=== PATIENT | female | born 1990 ===

== ENCOUNTER 2016-07-19 16:26 | Emergency (ER) | payer MEDICAID, OTHER ==
[2016-07-19 16:26] VITALS: BMI 36.4
[2016-07-19 16:39] VITALS: RESP 18
[2016-07-19] MEDS ORDERED: Alum-Mag Hydrox-Simethicone Susp (30 mL) PO STA (17:01)
[2016-07-19] MEDS ORDERED: Alum-Mag Hydrox-Simethicone Susp (30 mL) ONE (17:06)
[2016-07-19 17:21] LABS: BASO # 0.1 K/uL (0.0-0.2); BASO % 0.9 % (0.0-2.0); EOS # 0.1 K/uL (0.0-0.7); HEMATOCRIT 38.3 % (34.0-47.0); LYMPH % 34.9 % (20.0-40.0); MEAN CELL VOLUME 82.1 fL (81.0-99.0); MEAN CORPUSCULAR HEMOGLOBIN 26.7 pg (27.0-31.0); MEAN CORPUSCULAR HGB CONC 32.5 g/dL (33.0-37.0); MEAN PLATELET VOLUME 7.9 fL (7.2-11.7); MONO # 0.7 K/uL (0.0-0.8); RED CELL DISTRIBUTION WIDTH 15.8 % (11.5-14.5); WHITE BLOOD COUNT 8.6 K/uL (4.8-10.8)
[2016-07-19 17:29] LABS: CHLORIDE 99 mmol/L (98-107); POTASSIUM 3.9 mmol/L (3.6-5.2); SODIUM 138 mmol/L (132-148)
[2016-07-19 17:30] LABS: RBC URINE 1 /hpf (0-3); TRANSITIONAL EPITHIAL < 1 /hpf (0-3); URINE BACTERIA RARE (<OCC); URINE BILIRUBIN NEGATIVE (NEGATIVE); URINE BLOOD NEGATIVE (NEGATIVE); URINE COLOR Straw (YELLOW); URINE GLUCOSE (UA) NORMAL (Normal); URINE KETONE NEGATIVE (NEGATIVE); URINE LEUKOCYTE ESTERASE NEG Leu/uL (Negative); URINE PROTEIN NEGATIVE (NEGATIVE); URINE UROBILINOGEN NORMAL mg/dL (0.2-1.0); WBC URINE < 1 /hpf (0-5)
[2016-07-19 17:31] LABS: AST/SGOT 20 U/L (14-36); BILIRUBIN,TOTAL 0.4 mg/dL (0.2-1.3); CARBON DIOXIDE 27 mmol/L (22-30); GFR AFRICAN-AMERICAN > 60
[2016-07-19 17:32] LABS: ALB/GLOB RATIO 1.2 (1.0-2.1); ALKALINE PHOSPHATASE 77 U/L (38-126); ALT/SGPT 45 U/L (9-52); BLOOD UREA NITROGEN 12 mg/dL (7-17); CALCIUM 8.9 mg/dl (8.6-10.4); GLUCOSE,RANDOM 96 mg/dL (65-105); TOTAL PROTEIN 8.3 g/dL (6.3-8.3)
--- NOTE | 2016-07-19 18:20 | C.PDOC ---
History Of Present Illness 26 y/o female presents to the ED for evaluation of chronic epigastric discomfort and reflux symptoms. Pt reports persistent symptoms since , previously controlled by pepcid and maalox but none taken recently. Denies fever , chills, vomiting, diarrhea or any other complaints. Time Seen by Provider: 07/19/16 16:55 Chief Complaint (Nursing): Abdominal Pain History Per: Patient History/Exam Limitations: no limitations Onset/Duration Of Symptoms: Days Current Symptoms Are (Timing): Still Present Severity: Mild Location Of Pain/Discomfort: Epigastric Associated Symptoms: denies: Fever, Chills, Nausea, Vomiting, Diarrhea Exacerbating Factors: None Alleviating Factors: None Recent travel outside of the [place]: No Past Medical History Reviewed: Historical Data, Nursing Documentation, Vital Signs Vital Signs: Last Vital Signs Temp 98.3 F 07/19/16 18:46 Pulse 90 07/19/16 18:46 Resp 18 07/19/16 18:46 BP 137/83 07/19/16 18:46 Pulse Ox 99 07/19/16 18:46 - Medical History PMH: Gastritis - [facility] Procedures EXTRACTION OF POC, LOW CERVICAL, OPEN APPROACH (11/06/15) INTRODUCE OF OTH THERAP SUBST INTO FEM REPROD, VIA OPENING (11/06/15) Family History: States: Unknown Family Hx - Social History Hx Alcohol Use: No Hx Substance Use: No - Immunization History Hx Tetanus Toxoid Vaccination: No Hx Influenza Vaccination: No Hx Pneumococcal Vaccination: No Review Of Systems Except As Marked, All Systems Reviewed And Found Negative. Constitutional: Negative for: Fever Gastrointestinal: Positive for: Abdominal Pain. Negative for: Nausea, Vomiting , Diarrhea Physical Exam - Physical Exam Appears: Non-toxic, No Acute Distress, Other (obese) Skin: Warm, Dry, No Rash Head: Atraumatic, Normacephalic Chest: Symmetrical, No Tenderness Cardiovascular: Rhythm Regular, No Murmur Respiratory: Normal Breath Sounds, No Rales, No Rhonchi, No Wheezing Gastrointestinal/Abdominal: Soft, Tenderness (mild epigastric), No Guarding, No Rebound, Other (tympanic to percussion) Extremity: Bilateral: Atraumatic Neurological/Psych: Oriented x3, Normal Speech ED Course And Treatment - Laboratory Results Result Diagrams: 07/19/16 17:15 07/19/16 17:15 Lab Interpretation: Normal (ua neg.) Urine POC: Negative O2 Sat by Pulse Oximetry: 100 (room air) Pulse Ox Interpretation: Normal - Radiology CXR: Interpreted by Me CXR Interpretation: Yes: No Acute Disease - Other Rad abd x 2 X-Ray: Interpreted by Me (+FOS) Progress Note: pepcid/maalox, labs, UA, IV fluids Reevaluation Time: 18:19 Reassessment Condition: Improved Medical Decision Making Medical Decision Making: acute on chronic constipation and GERD Disposition Doctor Will See Patient In The: Office Counseled Patient/Family Regarding: Studies Performed, Diagnosis - Disposition Referrals: [facility] [Outside] Disposition: HOME/ ROUTINE Disposition Time: 18:20 Condition: GOOD Additional Instructions: GERD: pepcid 20 mg en la noche para bajar el acidez del estomago Maalox 30 cc (darnell cucharada) o' el equivalente 5 veces al anai sin agua Sigue en nuestro Clinica para referencia a un Gastroenterologo para considerar un endoscopia Estrenemiento: Gisela el purgante (Citrato de Magnesio) y re-evalua tracey molestia del abdomen despus de usar el rivas 2-3 veces Sigue Colace 100 mg (esuavesante de los heces) dos veces al anai para ayudar en PREVENIR el estrenemiento Cambios de diet: menos arroz, habichuelas, carne, carey, queso, Mas agua, fruitas y verduras crudas- siete por anai. Sigue en nuestro Clinica (shameka). Prescriptions: Aluminum Hydroxide/Magnesium [Maalox Plus 30 ml] 30 ml PO 5XD PRN #240 ml PRN Reason: GERD Docusate [Colace] 100 mg PO BID #60 cap Famotidine [Pepcid] 20 mg PO HS #30 tab Magnesium Citrate [[facility] Magnesium Citrate] 300 ml PO ONCE PRN #1 bottle PRN Reason: Constipation Instructions: Constipation (ED), Gastroesophageal Reflux Disease (ED) Print Language: TAJIK - Clinical Impression Clinical Impression: Epigastric burning sensation - Scribe Statement The provider has reviewed the documentation as recorded by the Johnson Loaiza Provider Attestation: All medical record entries made by the Johnson were at my direction and personally dictated by me. I have reviewed the chart and agree that the record accurately reflects my personal performance of the history, physical exam, medical decision making, and the department course for this patient. I have also personally directed, reviewed, and agree with the discharge instructions and disposition.
[2016-07-19 18:52] VITALS: BP 137/83; PULSE 90; TEMP 98.3
[2016-07-19 19:42] VITALS: O2SAT 100
== END 2016-07-19 18:50 | disposition home or self-care (01) ==
LOC: C.ER 16:26
DX: R10.13 Epigastric pain (principal)